=== PATIENT | female | born 1955 | race Caucasian/White ===

== ENCOUNTER 2024-01-28 09:58 | Outpatient (CLI) | payer MEDICARE, SELFPAY ==
[2024-01-28] MEDS: albuterol 2.5 mg/3 mL Neb INHALATION (10:18)
[2024-01-28 10:25] VITALS: PULSE 72; RESP 18; O2SAT 97
[2024-01-28 10:30] VITALS: PULSE 68
== END 2024-01-28 09:59 | disposition home or self-care (01) ==
PROVIDERS: PCP Nurse Practitioner Family; Visit Provider Nurse Practitioner Family
DX: G47.33 Obstructive sleep apnea (adult) (pediatric) (principal); G47.34 Idiopathic sleep related nonobstructive alveolar hypoventilation; J44.9 Chronic obstructive pulmonary disease, unspecified; R91.1 Solitary pulmonary nodule
CPT/HCPCS: 94060; 94618; 94726; 94729